=== PATIENT | female | born 1980 | race Caucasian/White ===

== ENCOUNTER 2016-06-08 09:59 | Emergency (ER) | payer OTHER, MEDICARE ==
[~2016-06-08 09:59] MED LIST: CLEOCIN HCL300 MG PO; CLINDAMYCIN300 MG PO; HYDROCODONE/ACE1 TA1 PO; LIORESAL 10MG T10 MG PO; MEDROL DOSEPAK1 PAC PO; MOBIC15 M1 PO; MOTRIN800 MG PO; NAPROXEN500 MG PO; NORCO 325 MG-7.1 TAB PO; PERCOCET 325 MG1 TA2 PO; PERCOCET 5-3251 EACH PO; TESSALON PERLE100 MG PO; TRAMADOL HCL50 M1 PO; TYLENOL #31 TAB PO; ZITHROMAX Z-PA250 M1 PO
--- NOTE | 2016-06-08 11:09 | ED UPPER/LOWER EXTREMITY COMPL ---
History of Present Illness General Chief Complaint: Lower Extremity Injury Stated Complaint: L KNEE PAIN Source: patient, old records Exam Limitations: no limitations Vital Signs & Intake/Output Vital Signs & Intake/Output Vital Signs Date Time Temp Pulse Resp B/P Pulse O2 O2 Flow FiO2 Ox Delivery Rate 06/08 1221 97.6 79 18 157/82 98 Room Air 06/08 1012 97.7 83 20 164/98 99 Room Air Allergies Coded Allergies: amoxicillin (GI UPSET 12/12/15) Reconcile Medications Ibuprofen 800 MG TABLET 1 TAB PO TID PRN pain Oxycodone HCl/Acetaminophen (Percocet 5-325 MG Tablet) 5 MG-325 MG TABLET 1 TAB PO BID PRN breakthrough pain Tramadol HCl 50 MG TABLET 1-2 TAB PO Q6 PRN pain Triage Note: PT PRESENTS TO ER FOR LEFT KNEE PAIN. PT STATES SHE HAS HAD CHRONIC LEFT KNEE ISSUES AND WAS TOLD SHE NEEDED SURGERY BUT SHE HAS BEEN UNABLE TO SCHEDULE SURGERY DUE TO HER SCHEDULE WITH KIDS AND HER MEDICAL ISSUES (LEGALLY BLIND). PT STATES YESTERDAY AT A SCHOOL EVENT WITH HER KIDS SHE SLIPPED ON ICE. PT STATES TODAY THE PAIN IS WORSE. PT STATES SHE SAW A DOCTOR A WHILE BACK BUT HE WAS VERY RUDE AND DISCOURAGED HER. PT STATES NOW THAT HER CHILDREN ARE OLDER SHE IS READY FOR SURGERY Triage Nurses Notes Reviewed? yes Onset: Abrupt Duration: day(s): (1), constant Timing: recent history Severity: moderate Severity Numbers: 6 Pain/Injury Location: Left: Knee. Method of Injury: fall Modifying Factors: Improves With: rest. Worsens With: movement. Associated Symptoms: swelling : No Patient currently breastfeeds: No HPI: 35-year-old female presents emergency room for evaluation complaining of mild to moderate sudden onset nonradiating left anterior knee pain since last night. Patient states that she had a mechanical fall when she slipped on ice at [employer]. Patient denies any other injury there is no head strike no loss of consciousness no neck or back pain. She denies any upper extremity or right leg pain. She denies left hip foot or ankle injury. She took tramadol last night for pain without improvement. Patient states that her knee has been swollen since injury occurred. There are no other modifying factors or associated symptoms otherwise. (REA CANO,EDEL) Past History Travel History Traveled to [place] past 21 day No Medical History Any Pertinent Medical History? see below for history Neurological: NONE EENT: LEGALLY BLIND Cardiovascular: NONE Respiratory: NONE Gastrointestinal: NONE Hepatic: NONE Renal: NONE Musculoskeletal: [place] IN LEFT FOOT Psychiatric: NONE Endocrine: NONE Blood Disorders: NONE Cancer(s): NONE NREMT/Reproductive: NONE Surgical History Surgical History: cholecystectomy, Psychosocial History Who do you live with Spouse What is your primary language Citizen Of [place] Tobacco Use: Never used Family History Hx Contributory? No (EDEL MELO) Review of Systems Review of Systems Constitutional: Reports: see HPI. All Other Systems: Reviewed and Negative Comments Review of systems: See HPI, All other systems negative. Constitutional, no chills no fever, no malaise HEENT:no sore throat no congestion, no ear pain Cardiovascular: No chest pain , no palpitation , Skin,no rashes, no change in skin Respiratory: No dyspnea no cough no sputum GI: No nausea no vomiting, no diarrhea, : No dysuria No hematuria, Muscle skeletal: joint pain, no joint swelling, no back pain, no neck pain, Neurologic: No numbness Heme/endocrine: No bruising no bleeding Immunology: No lymphadenopathy (EDEL MELO) Physical Exam Physical Exam General Appearance: well developed/nourished, no apparent distress, alert, awake Comments: Well-developed well-nourished patient in no apparent distress. HEENT: Atraumatic, extraocular motion intact Neck: Supple, FROM, Back: FROM Cardiovascular: Regular rate and rhythms no murmurs Respiratory: CNo respiratory distress. Patient speaking in full complete sentences. Upper Extremities: full range of motion Hip/Pelvis: Atraumatic/Stable. FROM. No pain with pelvic compression Knee: Superficial abrasions noted over the anterior left knee, tender to palpation over the anterior knee no obvious deformity, FROM. No joint swelling, no effusion. No laxity. Negative alfred/anterior drawer test. No pain with ROM Leg: Atraumatic. Nontender. No edema, patient is able to straight leg raise left lower extremity 5 out of 5 strength in the lower extremity, normal dorsiflexion of great toe bilaterally, gross sensation is intact, patellar tendon reflex 2+ bilaterally. Ankle/Foot: Atraumatic/stable. Skin intact. FROM. No swelling, no effusion. No laxity on exam Pulses: Normal/equal DP/PT pulses bilaterally. Brisk cap refill Neuro: Alert and oriented x3 Skin: Warm & dry;No appreciable rash on exposed skin Psych: Mood affect normal, normal memory normal judgment. (EDEL MELO) Progress Differential Diagnosis: contusion, dislocation, fracture, sprain, tendon injury Plan of Care: Orders Procedure Date/time Status Durable Medical Equipment 06/08 1116 Active Discussed with patient x-ray results leg immobilizer was applied by nursing. Discussed with her need for close follow-up with her primary care physician or orthopedist Dr. meyers next week if symptoms persist. Advise riceTylenol Motrin. Prescription for Humphrey provided for breakthrough pain. I discussed with the patient at length all of their results. I had an extensive conversation regarding need for close follow up with their primary care physician this week as well as return precautions. I answered all of their questions, they feel comfortable with the plan and follow-up care. I discussed the medications that they will receive with the patient. I gave them signs and symptoms that could indicate an adverse reaction. I have advised them to limit their activities until they can see how they respond to the medication. (EDEL MELO) Diagnostic Imaging: Viewed by Me: Radiology Read. Discussed w/RAD: Radiology Read. Radiology Impression: PATIENT: AGUEDA HILL PRESENT AGE: 35 PATIENT ACCOUNT NO: [id number] : 79 LOCATION: [facility] ORDERING PHYSICIAN: EDEL CANO SERVICE DATE: 06/08/16 EXAM TYPE: RAD - XRY-KNEE COMPLETE LEFT EXAMINATION: XR KNEE, LEFT CLINICAL INFORMATION: Left knee pain. Status post fall. COMPARISON: None TECHNIQUE: Four views of the left knee. FINDINGS: Bone mineral density is maintained without evidence of fracture or dislocation. No focal osseous lesions are seen. There is mild tricompartmental joint space narrowing with mild productive changes. No erosive changes are seen. There is no significant joint effusion. IMPRESSION: Mild degenerative changes. DICTATED BY: DUANE COREA MD DATE/TIME DICTATED:1206 CALL CENTER TRAINER:VARUN DATE/TIME TRANSCRIBED:06/08/161206 CONFIDENTIAL, DO NOT COPY WITHOUT APPROPRIATE AUTHORIZATION. <Electronically signed in Other Vendor System> SIGNED BY: DUANE COREA MD 06/08/161211 (EDEL MELO) Departure Departure Disposition: HOME OR SELF CARE Condition: Stable Clinical Impression Primary Impression: Knee sprain Referrals: JOÃO LI,MARIEL PATIENT HAS NO PRIMARY CARE DR (PCP/Family) VINOD KELLEY MD Additional Instructions: Rest ice Tylenol Motrin for pain every 4-6 hours. percocet for breakthrough pain. Use caution as the narcotic highly addictive no driving or drinking alcohol while taking. Leg immobilizer as discussed. Follow up with primary care physician Dr. Kelley next week. If symptoms persist follow-up with orthopedist Dr. villegas. return with any concerns. these prescriptions was sent to the [facility]. Departure Forms: Customer Survey General Discharge Information Prescriptions: Current Visit Scripts Oxycodone HCl/Acetaminophen (Percocet 5-325 MG Tablet) 1 TAB PO BID PRN breakthrough pain #8 TAB Ibuprofen 1 TAB PO TID PRN pain #30 TAB (EDEL MELO) PA/CONSTRUCTION STONEMASON Co-Sign Statement Statement: ED Attending supervision documentation- [] I saw and evaluated the patient. I have also reviewed all the pertinent lab results and diagnostic results. I agree with the findings and the plan of care as documented in the PA's/CONSTRUCTION STONEMASON's documentation. [X] I have reviewed the ED Record and agree with the PA's/CONSTRUCTION STONEMASON's documentation. [] Additions or exceptions (if any) to the PAs/CONSTRUCTION STONEMASON's note and plan are summarized below: [] (WATSON IBRAHIM DO
[2016-06-08] MEDS ORDERED: IBUPROFEN800 M1 PO (12:11)
[2016-06-08] MEDS ORDERED: PERCOCET 5-3251 EACH PO (12:11)
--- NOTE | 2016-06-08 12:12 | RADIOLOGY REPORT ---
EXAMINATION: XR KNEE, LEFT CLINICAL INFORMATION: Left knee pain. Status post fall. COMPARISON: None TECHNIQUE: Four views of the left knee. FINDINGS: Bone mineral density is maintained without evidence of fracture or dislocation. No focal osseous lesions are seen. There is mild tricompartmental joint space narrowing with mild productive changes. No erosive changes are seen. There is no significant joint effusion. IMPRESSION: Mild degenerative changes.
[2016-06-08 12:21] VITALS: BP 157/82
== END 2016-06-08 12:22 ==
LOC: ERH 09:59
DX: S83.92XA Sprain of unspecified site of left knee, initial encounter (principal); W00.0XXA Fall on same level due to ice and snow, initial encounter; Y93.9 Activity, unspecified; Y92.213 High school as the place of occurrence of the external cause
CPT/HCPCS: 73562-LT

== ENCOUNTER 2016-09-18 08:22 | Emergency (ER) | payer OTHER, MEDICARE ==
[~2016-09-18] VITALS: Ht 172.7 cm; Wt 113.4 kg
[~2016-09-18 08:22] MED LIST changes: +IBUPROFEN800 M1 PO
[2016-09-18 08:25] VITALS: BP 145/86
--- NOTE | 2016-09-18 08:40 | ED UPPER/LOWER EXTREMITY COMPL ---
History of Present Illness General Chief Complaint: General Adult Stated Complaint: R KNEE, LEFT SHOULDER PAIN Source: patient, old records Exam Limitations: no limitations Vital Signs & Intake/Output Vital Signs & Intake/Output Vital Signs Date Time Temp Pulse Resp B/P B/P Pulse O2 O2 Flow FiO2 Mean Ox Delivery Rate 09/18 0825 98.0 80 20 145/86 98 Room Air Allergies Coded Allergies: amoxicillin (GI UPSET 12/12/15) Reconcile Medications Cyclobenzaprine HCl 10 MG TABLET 1 TAB PO Q8P PAIN OR SPASM Tramadol HCl 50 MG TABLET 1 TAB PO Q6P PRN PAIN Triage Note: PT TO ED C/O R KNEE PAIN AND LEFT SHOULDER PAIN. PT WAS TAKING LEFT OVER TRAMADOL, WHICH DID NOT HELP. STATES SHE WAS MOVING AN AIR CONDITIONER AND EXACERBATED HER CHRONIC RIGHT KNEE PAIN. Triage Nurses Notes Reviewed? yes : No Patient currently breastfeeds: No HPI: Patient has no known for meniscus in her right knee. Patient was taking tramadol for the pain but she ran out of it a few days ago. Patient states that she was carrying an air conditioner up 2 flights of stairs when it started to slip so she grabbed it more with her left arm and since then she has been having left shoulder pain. The shoulder pain is around her shoulder blades but then wraps around to her chest. Patient states that when she raises her arm above her head she gets a little bit short of breath. There is no shortness of breath when she is not raising her arm. The pain in her left shoulder is 10 out of 10 and increases with movement. It radiates as noted above. The pain is aching and pulling in nature. The pain in her right knee is also increased because she ran out of her pain medication. That pain is constant and is throbbing in nature. The pain increases with ambulation. There is no radiation of the pain. Pain is an 8 out of 10. Past History Travel History Traveled to [place] past 21 day No Medical History Any Pertinent Medical History? see below for history Neurological: NONE EENT: LEGALLY BLIND Cardiovascular: NONE Respiratory: NONE Gastrointestinal: NONE Hepatic: NONE Renal: NONE Musculoskeletal: [place] IN LEFT FOOT Psychiatric: NONE Endocrine: NONE Blood Disorders: NONE Cancer(s): NONE PRODUCT TRAINER/Reproductive: NONE Surgical History Surgical History: cholecystectomy, Psychosocial History Who do you live with Spouse What is your primary language [place] Tobacco Use: Current Daily Use Daily Tobacco Use Amount/Type: => 5 Cigarettes daily ETOH Use: denies use Illicit Drug Use: denies illicit drug use Family History Hx Contributory? No Review of Systems Review of Systems Constitutional: Reports: no symptoms. EENTM: Reports: no symptoms. Respiratory: Reports: no symptoms. Cardiovascular: Reports: no symptoms. Gastrointestinal/Abdominal: Reports: no symptoms. Genitourinary: Reports: no symptoms. Musculoskeletal: Reports: see HPI, joint pain, muscle pain. Skin: Reports: no symptoms. Neurological/Psychological: Reports: no symptoms. Hematologic/Endocrine: Reports: no symptoms. Immunological: Reports: no symptoms. All Other Systems: Reviewed and Negative Physical Exam Physical Exam General Appearance: well developed/nourished, mild distress Head: atraumatic Eyes: Bilateral: PERRL, EOMI. Ears, Nose, Throat: normal pharynx, normal ENT inspection, hearing grossly normal Neck: normal inspection, supple, full range of motion Cardiovascular/Respiratory: normal breath sounds, normal peripheral pulses, regular rate/rhythm, no respiratory distress Back: normal inspection, muscle spasm, no vertebral tenderness Shoulder Left: normal range of motion, tenderness, pain, soft tissue tenderness Knee Right: normal range of motion, normal inspection Knee Ligaments Right: stable Neurologic/Tendon: normal sensation, normal motor functions, normal tendon functions Skin: intact, normal color, warm/dry Lymphatic: no anterior cervical geneva Progress Differential Diagnosis: contusion, fracture, sprain, tendon injury Plan of Care: Orders Procedure Date/time Status XRY-CHEST XRAY, PA AND LATERAL 09/18 838 Active Diagnostic Imaging: Viewed by Me: Radiology Read. Discussed w/RAD: Radiology Read. Radiology Impression: PATIENT: AGUEDA HILL PRESENT AGE: 35 PATIENT ACCOUNT NO: [id number] : 79 LOCATION: [facility] ORDERING PHYSICIAN: KYRA EDWARDS MD SERVICE DATE: 09/18/16 EXAM TYPE: RAD - XRY-CHEST XRAY, PA AND LATERAL EXAMINATION: XR CHEST CLINICAL INFORMATION: Shortness of breath. COMPARISON: 06/02/2015. TECHNIQUE: 2 views of the chest obtained. FINDINGS: Minor linear atelectasis or scarring is seen at the right lung base. The lungs and pleural spaces are otherwise clear. The heart and mediastinum are normal in appearance. No acute osseous abnormality is seen. IMPRESSION: Minor linear atelectasis or scarring is seen at the right lung base. The lungs pleural spaces are otherwise clear. DICTATED BY: BERYL FLETCHER MD DATE/TIME DICTATED:09/18/16929 PANTOGRAPH I ENGRAVER:VARUN DATE/TIME TRANSCRIBED:09/18/16929 CONFIDENTIAL, DO NOT COPY WITHOUT APPROPRIATE AUTHORIZATION. <Electronically signed in Other Vendor System> SIGNED BY: BERYL FLETCHER MD 09/18/16934 Departure Departure Disposition: HOME OR SELF CARE Condition: Stable Clinical Impression Primary Impression: Left shoulder strain Qualifiers: Encounter type: initial encounter Qualified Code: S46.912A - Strain of unspecified muscle, fascia and tendon at shoulder and upper arm level, left arm, initial encounter Secondary Impressions: Right knee pain Qualifiers: Chronicity: chronic Qualified Codes: M25.561 - Pain in right knee; G89.29 - Other chronic pain Referrals: VINOD CELIS MD (PCP/Family) Additional Instructions: use moist heat follow up with your regular doctor Departure Forms: Customer Survey General Discharge Information Prescriptions: Current Visit Scripts Tramadol HCl 1 TAB PO Q6P PRN PAIN #20 TAB Cyclobenzaprine HCl 1 TAB PO Q8P #20 TAB
[2016-09-18] MEDS ORDERED: CYCLOBENZAPRINE10 M1 PO (09:07)
[2016-09-18] MEDS ORDERED: TRAMADOL HCL50 M1 PO (09:07)
--- NOTE | 2016-09-18 09:35 | RADIOLOGY REPORT ---
EXAMINATION: XR CHEST CLINICAL INFORMATION: Shortness of breath. COMPARISON: 06/02/2015. TECHNIQUE: 2 views of the chest obtained. FINDINGS: Minor linear atelectasis or scarring is seen at the right lung base. The lungs and pleural spaces are otherwise clear. The heart and mediastinum are normal in appearance. No acute osseous abnormality is seen. IMPRESSION: Minor linear atelectasis or scarring is seen at the right lung base. The lungs pleural spaces are otherwise clear.
== END 2016-09-18 09:48 ==
LOC: ERH 08:22
DX: S46.912A Strain of unspecified muscle, fascia and tendon at shoulder and upper arm level, left arm, initial encounter (principal); M25.561 Pain in right knee; X58.XXXA Exposure to other specified factors, initial encounter; Y92.9 Unspecified place or not applicable; Y93.9 Activity, unspecified